=== PATIENT | female | born 1960 | race African-American/Black ===

== ENCOUNTER 2024-04-06 17:54 | Inpatient (IN) | payer OTHER ==
[2024-04-06 20:09] LABS: INR 0.95 (0.83-1.09); PROTHROMBIN TIME (PATIENT) 10.8 SEC (9.7-13.0)
[2024-04-06 20:27] LABS: POTASSIUM 5.1 mmol/L (3.5-5.1)
[2024-04-06 20:29] LABS: ALBUMIN 3.7 g/dl (3.4-5.0); CALCIUM 9.4 mg/dL (8.5-10.1)
[2024-04-06 20:30] LABS: BLOOD UREA NITROGEN 23.1 mg/dL (7-18)
[2024-04-06 20:33] LABS: CREATININE 0.6 mg/dL (0.55-1.3)
[2024-04-06 20:34] LABS: BILIRUBIN,TOTAL 0.8 mg/dL (0.2-1); TOT PROT 7.5 g/dl (6.4-8.2)
[2024-04-06 20:36] LABS: ACTIVATED PTT 16.6 SECONDS (25.2-36.5)
[2024-04-06 20:46] LABS: BASO % 0.9 % (0-2.0); EOS % 1.9 % (0-4.5); HEMATOCRIT 33.2 % (32.4-45.2); HEMOGLOBIN 10.8 GM/dL (10.7-15.3); LYMPH % 26.2 % (8-40); MCH 31.8 pg (25.7-33.7); MCHC 32.6 g/dl (32.0-36.0); MEAN CELL VOLUME 97.7 fl (80-96); MEAN PLT VOLUME 10.6 fl (7.5-11.1); MONO % 9.3 % (3.8-10.2); NEUT % 61.7 % (42.8-82.8); PLATELET COUNT 216 10^3/uL (134-434); RDW 16.1 % (11.6-15.6); WHITE BLOOD COUNT 10.2 K/mm3 (4.0-10.0)
[2024-04-06] MEDS ORDERED: ACETAMINOPHEN 1000 MG/100 ML BAG IVPB PRN (23:54)
[2024-04-07 02:27] VITALS: BMI 21.6
[2024-04-07] MEDS: DEXTROSE 5%-0.45% SALINE 1,000 ML IV SCH (08:38)
[2024-04-07 10:29] LABS: HEMATOCRIT 34.3 % (32.4-45.2); HEMOGLOBIN 11.2 GM/dL (10.7-15.3); MCH 31.9 pg (25.7-33.7); MCHC 32.5 g/dl (32.0-36.0); MEAN CELL VOLUME 98.2 fl (80-96); MEAN PLT VOLUME 11.1 fl (7.5-11.1); PLATELET COUNT 207 10^3/uL (134-434); RBC 3.49 M/mm3 (3.60-5.2); RDW 16.5 % (11.6-15.6); WHITE BLOOD COUNT 9.1 K/mm3 (4.0-10.0)
[2024-04-07 10:50] LABS: CALCIUM 9.4 mg/dL (8.5-10.1)
[2024-04-07 10:51] LABS: ALBUMIN 3.7 g/dl (3.4-5.0); BLOOD UREA NITROGEN 19.6 mg/dL (7-18); MAGNESIUM 2.2 mg/dL (1.8-2.4)
[2024-04-07 10:53] LABS: CREATININE 0.4 mg/dL (0.55-1.3)
[2024-04-07 10:54] LABS: PHOSPHOROUS 3.7 mg/dL (2.5-4.9)
[2024-04-07 10:55] LABS: BILIRUBIN,TOTAL 0.7 mg/dL (0.2-1)
[2024-04-07 10:56] LABS: TOT PROT 7.2 g/dl (6.4-8.2)
[2024-04-09 07:58] LABS: EOS % 1.8 % (0-4.5); HEMATOCRIT 34.1 % (32.4-45.2); LYMPH % 27.2 % (8-40); MCH 31.6 pg (25.7-33.7); MCHC 32.3 g/dl (32.0-36.0); MEAN CELL VOLUME 97.9 fl (80-96); MEAN PLT VOLUME 10.8 fl (7.5-11.1); MONO % 9.5 % (3.8-10.2); NEUT % 60.5 % (42.8-82.8); PLATELET COUNT 214 10^3/uL (134-434); RBC 3.49 M/mm3 (3.60-5.2); RDW 15.9 % (11.6-15.6); WHITE BLOOD COUNT 9.5 K/mm3 (4.0-10.0)
[2024-04-09 08:08] LABS: POTASSIUM 3.8 mmol/L (3.5-5.1)
[2024-04-09 08:15] LABS: ALBUMIN 3.5 g/dl (3.4-5.0)
[2024-04-09 08:16] LABS: BLOOD UREA NITROGEN 7.7 mg/dL (7-18)
[2024-04-09 08:19] LABS: CREATININE 0.4 mg/dL (0.55-1.3)
[2024-04-09 08:20] LABS: BILIRUBIN,TOTAL 0.8 mg/dL (0.2-1); TOT PROT 6.8 g/dl (6.4-8.2)
[2024-04-10] MEDS: LISINOPRIL 10 MG TABLET GT SCH (10:09)
[2024-04-10 15:23] VITALS: RESP 18
[2024-04-10 21:56] VITALS: BP 165/89; PULSE 112; TEMP 100.2
[2024-04-10] MEDS: ATORVASTATIN CA 20 MG TABLET (FP) GT SCH (21:57)
== END 2024-04-11 00:15 | DRG 394 ==
LOC: JER 17:54 → JERBED 22:17 → J6W 04-07 01:52
PROVIDERS: ADMIT Internal Medicine; ATTEND Internal Medicine
PROC: 0D20XUZ Change Feeding Device in Upper Intestinal Tract, External Approach (ICD-10-PCS; principal; 2024-04-09)
DX: K94.23 Gastrostomy malfunction (principal); E87.0 Hyperosmolality and hypernatremia; I50.42 Chronic combined systolic (congestive) and diastolic (congestive) heart failure; I69.351 Hemiplegia and hemiparesis following cerebral infarction affecting right dominant side; I25.10 Atherosclerotic heart disease of native coronary artery without angina pectoris; E11.9 Type 2 diabetes mellitus without complications; F01.50 Vascular dementia, unspecified severity, without behavioral disturbance, psychotic disturbance, mood disturbance, and anxiety; D64.9 Anemia, unspecified; K21.9 Gastro-esophageal reflux disease without esophagitis; I11.0 Hypertensive heart disease with heart failure; I50.9 Heart failure, unspecified; I69.391 Dysphagia following cerebral infarction; R13.10 Dysphagia, unspecified
CPT/HCPCS: 36415; 49450; 71045-TC-FY; 74018-TC-FY; 80053; 82962; 83735; 84100; 85025; 85027; 85610; 85730; 86850; 86900; 86901; 93005; 93010; 97161-GP; 99285-25